=== PATIENT | male | born 1955 | race Caucasian/White ===

== ENCOUNTER → 2020-04-03 12:42 | Outpatient (CLI) | payer OTHER, SELFPAY ==
--- NOTE | 2020-04-03 13:33 | SP.MBSS_ITS ---
Modified Barium Swallow - Patient Information Study Date: 04/03/20 Study Time: 12:50 Direct Billable Minutes: 90 Total Minutes procedure & reportin Diagnosis: dysphagia Referring Physician: Inocencio Mckeon Reason for Referral: objective assessment of swallow function s/p CVA Medical History: Limited history provided by patient - CVA 03/15/2020; denies hx of head/neck surgery or GERD Dentition: Natural Teeth Respiratory Status: Oxygenating on Room Air - Penetration-Aspiration Scale Score Thin Liquid via teaspoon Result: 1= does not enter airway Thin Liquid via teaspoon Trial 2 Result: 1= does not enter airway Thin Liquid via small single sip from cup Result: 1= does not enter airway Thin Liquid via small single sip from cup Trial 2 Result: 2= enter airway/above vocal folds/ejected Thin Liquid via sequential sips from cup Result: 1= does not enter airway Thin Liquid via single sip from straw Result: 1= does not enter airway Pudding Result: 1= does not enter airway Cookie Result: 1= does not enter airway Thin Liquid via small single sip from cup Trial 3 Result: 1= does not enter airway - Oral Phase Labial Seal: No Labial Escape Tongue Control During Bolus Hold: Cohesive bolus between tongue to palatal seal Bolus Preparation/Mastication: Slow prolonged chewing/mashing with complete recollection Bolus Transport/Lingual Motion: Slowed tongue motion Oral Residue: Residue collection on oral structures - Pharyngeal Phase Initiation of Pharyngeal Swallow: Bolus head in pyriforms - at pyriforms w/ liquid via teaspoon, improved w/ liquid by cup Soft Palate Elevation: No bolus between soft palate and pharyngeal wall Laryngeal Elevation: Partial superior movement thyroid cart/partial apprx aryt- epig petiole Epiglottic Movement: Complete inversion Laryngeal Vestibule Closure at Height of Swallow: Complete; no air/contrast in laryngeal vestibule Pharyngeal Stripping Wave: Present - diminished Pharyngoesophageal Segment Opening: Parital distension and partial duration; parital obstruction of flow Tongue Base Retraction: Trace column of contrast between tongue base & post. pharyngeal wall Pharyngeal Residue: Trace residue within or on pharyngeal structures - Esophageal Phase Esophageal Clearance: Esophageal retention - Diagnosis/Impression Diagnosis: mild oropharyngeal dysphagia Impression: This patient presents w/ mild oropharyngeal dysphagia secondary to CVA. The oral phase is marked by: * adequate labial seal w/out anterior bolus leakage * sufficient oral control, no bolus loss to floor of mouth, no premature pharyngeal bolus entry when cued for oral holding of bolus * mildly prolonged mastication of solids * slowed lingual motion for A-P bolus transit w/ multiple lingual sweeps utilized to transfer the bolus to the pharynx * a collection of oral residue remained lining the oral tongue post deglutition; cleared w/ second swallow/liquid wash The pharyngeal phase is marked by: * suboptimal bolus placement upon swallow onset w/ thin liquid via teaspoon reaching the posterior laryngeal surface of the epiglottis and/or pyriforms prior to swallow onset; improved bolus placement upon swallow onset as trials progressed w/ liquid by cup * reduced hyolaryngeal excursion and diminished pharyngeal contraction w/ minimal pharyngeal contrast retention post deglutition The esophageal phase is marked by: * esophageal lining of contrast visible below the PES * esophageal scan down to screen for clearance revealed esophageal bolus retention; further assessment of esophageal function is recommended - Recommendations Diet: Regular Textures, Thin Liquids Compensatory Strategies: Small Bites, Small Sips, Alternate bites/solids and sips/liquids, Sitting upright, Remain sitting upright for 30 minutes after PO intake Recommend Repeat Modified Barium Swallow: No Need for Skilled Speech Therapy Services: Yes Comment: This patient requires skilled ST intervention targeting oropharyngeal dysphagia w/ treatment to include: * assessment of diet tolerance and effective use of compensatory strategies to improve safety and reduce aspiration risk w/ PO intake * oropharyngeal strengthening exercises to improve strength/coordination and timing of swallow onset Recommended Referrals: GI Consult - referral for further assessment of esophageal function recommended Education Completed: 1. Described result of evaluation., 2. Pt understands evaluation & agrees with goals and treatment plan. Comment: Results and recommendations were discussed w/ the patient immediately following MBS completion. Images were reviewed to improve patient comprehension of the deficits identified and rationale for receipt of ongoing dysphagia intervention. Although not observed during this study, the patient reports frequent unilateral buccal pocketing of food. Encouraged to place bolus to the opposite (stronger) side in conjunction w/ a slight head tilt to the stronger side for gravitational assist to reduce pocketing, followed by a lingual sweep/liquid wash to clear pocketed residue. All education well received w/ the patient verbalizing understanding and agreement w/ the education provided. - Status Active ST Patient: Active - Contact Information [facility] Speech Therapy:: Cassandra Tiwari M.A., [facility] [employer] Speech-Language Pathologist [email or web address] [phone]
== END ==
PROVIDERS: PCP Family Medicine; Referring Provider Family Medicine; Visit Provider Family Medicine
DX: R13.10 Dysphagia, unspecified (principal)
CPT/HCPCS: 74230; 92611